=== PATIENT | male | born 1975 | race Caucasian/White ===

== ENCOUNTER 2021-08-17 14:35 | Inpatient (IN) | payer SELFPAY ==
[~2021-08-17 14:35] MED LIST: Iopamidol-370 76% 500 ML 1 ML ONE
[2021-08-17 15:21] LABS: #Eosinphils 0.1 thou/uL (0.0-0.7); #Lymphocytes 1.6 thou/uL (1.20-3.40); #Monocytes 0.7 thou/uL (0.11-0.59); #Neutrophils 2.9 thou/uL (1.40-6.50); %Basophils 0.1 % (0.0-1.0); %Eosinophils 2.1 % (0.0-10.0); %Lymphocytes 29.5 % (21.0-51.0); %Neutrophils 55.4 % (42.0-75.0); Hemoglobin 15.6 g/dL (14.0-18.0); Mean Corpuscular HGB CONC 35.3 g/dL (32.0-36.0); Mean Corpuscular Hemoglobin 30.8 pg (27.0-31.0); Mean Corpuscular Volume 87.3 fL (78.0-98.0); Mean Platelet Volume 7.3 fL (7.4-10.4); Platelet Count 202 thou/uL (130-400); RBC Distribution Width 13.2 % (11.5-14.5); Red Blood Cell (RBC) Count 5.06 mill/uL (4.70-6.10); White Blood Cell (WBC) Count 5.3 thou/uL (4.8-10.8)
[2021-08-17 15:29] LABS: PTT 27.2 sec (22.9-36.1); Prothrombin Time 13.5 sec (12.0-14.7)
[2021-08-17 15:51] LABS: ALT (SGPT) 51 U/L (8-55); AST (SGOT) 47 U/L (5-34); Albumin 3.9 g/dL (3.5-5.0); Alkaline Phosphatase 76 U/L (40-110); Anion Gap 14 mmol/L (10-20); BUN (Urea Nitrogen) 16 mg/dL (8.9-20.6); Bilirubin, Total 0.8 mg/dL (0.2-1.2); Calc. Creatinine Clearance 0 mL/min (70-130); Calcium 9.4 mg/dL (7.8-10.44); Carbon Dioxide 21 mmol/L (22-29); Chloride 101 mmol/L (98-107); Globulin 6.4 g/dL (2.4-3.5); Glucose 71 mg/dL (70-105); Potassium 5.1 mmol/L (3.5-5.1); Protein, Total 10.3 g/dL (6.0-8.3); Sodium 131 mmol/L (136-145)
[2021-08-17] MEDS ORDERED: Aspirin Chewable 81 MG TAB ONE (16:13)
[2021-08-17 16:58] LABS: Acetaminophen Less than 6.0 mcg/mL (10.0-30.0); Alcohol Less than 10 mg/dL (Less than 10); Salicylate Less than 8.0 mg/dL (15.0-30.0)
[2021-08-17] MEDS ORDERED: hydrALAZINE 20 MG/ML VIAL SLOW IVP PRN (17:05)
[2021-08-17 17:19] LABS: Bilirubin Negative (Negative); Blood, Urine Negative (Negative); Clarity Clear (Clear); Glucose, Urine (Dipstick) Normal (Negative); Ketone, Urine Negative (Negative); Leukocyte Negative Leu/uL (Negative); Nitrite Negative (Negative); Protein, Urine (Dipstick) Negative (Neg-Trace); Specific Gravity, Urine 1.027 (1.002-1.036); Urobilinogen Normal mg/dL (Less than 2); pH, Urine 5.5 (5.0-9.0)
[2021-08-17 17:28] LABS: Amphetamine Detected (NotDetected); Barbiturates Screen Not Detected (NotDetected); Benzodiazepine Screen Not Detected (NotDetected); Cocaine Metabolite Screen Not Detected (NotDetected); Methadone Not Detected (NotDetected); Methamphetamine Detected (NotDetected); Opiate Screen Not Detected (NotDetected); Oxycodone Screen Not Detected (NotDetected); Phencyclidine (PCP) Not Detected (NotDetected); THC/Cannabinoid Screen Not Detected (NotDetected); Tricyclic Screen Not Detected (NotDetected)
[2021-08-17 20:15] VITALS: BMI 28.2
[2021-08-17] MEDS ORDERED: Acetaminophen 650 MG Suppository PR PRN (21:09)
[2021-08-17] MEDS: Acetaminophen 325 MG TAB PO PRN (21:33)
[2021-08-17] MEDS: Atorvastatin Calcium 40 MG TAB PO SCH (21:33)
[2021-08-18 05:03] LABS: Hemoglobin A1c 5.8 % (4.0-6.0)
[2021-08-18 05:22] LABS: Cardiac Risk 4.2 (Less than 4.5)
[2021-08-18] MEDS: Acetaminophen 325 MG TAB PO PRN ×2 (06:21→21:01)
[2021-08-18] MEDS: Aspirin 325 mg Enteric Coated Tablet PO SCH (08:55)
[2021-08-18] MEDS: Enoxaparin Sodium 40 MG/0.4 ML SYRINGE SC SCH (08:55)
[2021-08-18 12:59] LABS: Prothrombin Time 13.8 sec (12.0-14.7)
[2021-08-18 13:00] LABS: PTT 30.4 sec (22.9-36.1)
[2021-08-18 13:05] LABS: D-Dimer Test Less than 0.27 *mcg/mL (0.27-0.43)
[2021-08-18 14:54] LABS: SARS-CoV-2 PCR by NAA Not Detected (NotDetected)
[2021-08-18] MEDS ORDERED: Amlodipine 5 MG TAB PO SCH (16:45)
[2021-08-18] MEDS: Atorvastatin Calcium 40 MG TAB PO SCH (20:57)
[2021-08-19 07:45] VITALS: BP 152/103; TEMP 97.9
[2021-08-19] MEDS: Aspirin 325 mg Enteric Coated Tablet PO SCH (08:23)
[2021-08-19] MEDS: Enoxaparin Sodium 40 MG/0.4 ML SYRINGE SC SCH (08:23)
[2021-08-19] MEDS: Acetaminophen 325 MG TAB PO PRN (08:23)
[2021-08-19] MEDS ORDERED: Amlodipine 5 MG TAB PO SCH (09:00)
[2021-08-19 19:07] LABS: Cardiolipin IgA Ab 5.6 APL-U/mL (<14 Negative); Cardiolipin IgG Ab 3.5 GPL-U/mL (<10 Negative); EliA APS New Method **** NEW METHOD ****
[2021-08-21 13:07] LABS: HEX PHOS LA Tube 1 44.2 SEC; HEX PHOS LA Tube 2 38.1 SEC; Protein C Activity 70 % (78-152)
[2021-08-21 13:08] LABS: Factor VIII Test 224.3 % ACTIVE (56-157)
[2021-08-31 19:39] LABS: Activated Protein C Resistance 2.8 ratio (.)
== END 2021-08-19 11:59 | disposition home or self-care (01) | DRG 65 ==
LOC: ERS 14:35 → NEURO 17:20 → OBSVTOIN 08-18 16:35
PROVIDERS: ADMIT Internal Medicine; ATTEND Internal Medicine
DX: I63.89 Other cerebral infarction (principal); G81.94 Hemiplegia, unspecified affecting left nondominant side; Z20.822 Contact with and (suspected) exposure to COVID-19; F15.10 Other stimulant abuse, uncomplicated; R29.703 NIHSS score 3; I10 Essential (primary) hypertension
CPT/HCPCS: 36415; 70450; 70496; 70498; 70551; 71045; 72141; 80053; 80061; 80306; 80307; 81003; 83036; 83090; 84484; 85025; 85240; 85300; 85303; 85305; 85307; 85379; 85598; 85610; 85730; 86147; 93005; 93306; 94760; G0378; J1650; Q9967; U0003; U0005